=== PATIENT | female | born 1980 | race Caucasian/White ===

== ENCOUNTER 2025-02-25 12:37 | Outpatient (OUT) | payer BC, SELFPAY ==
--- NOTE | 2025-02-25 12:45 | XR_ITS ---
[facility] [place] [id number] Patient Name: JERI DALTON MRN: [id number] date: 1980 Sex: F Assigned Patient Location: [facility] Current Patient Location: [facility] Accession/Order Number: [id number] Exam Date: 02/25/2025 12:57 Report Date: 02/25/2025 14:13 At the request of: DANIKA JOHNSON DPDanielle Procedure: XR foot JENNIFER min 3V Bilateral foot series 3 views each. Reason for exam: Foot pain. COMPARISON: None FINDINGS: Right foot demonstrates no focal soft tissue abnormality or acute bony process. Joint spaces appear maintained. No bony erosions. Similar findings are seen involving the left foot without acute bony process. Bilateral plantar spurring. XR/XR foot JENNIFER min 3V IMPRESSION: Bilateral plantar spurring. No acute bony process. Impression dictated by: Syed Alexandre Jr., D.O. 02/25/2025 2:13 PM Dictation Location: [employer] Electronically authenticated by: [id number] Y Date: 02/25/2025 14:13
== END 2025-02-25 12:38 | disposition home or self-care (01) ==
LOC: RAD 12:38
PROVIDERS: PCP Family Medicine; Visit Provider Podiatrist Foot & Ankle Surgery
DX: M79.671 Pain in right foot (principal); M79.672 Pain in left foot; M77.32 Calcaneal spur, left foot; M77.31 Calcaneal spur, right foot
CPT/HCPCS: 73630

== ENCOUNTER 2025-03-08 14:31 | Outpatient (OUT) | payer BC, SELFPAY ==
--- NOTE | 2025-03-08 14:33 | MR_ITS ---
[address] [address] Patient Name: JERI DALTON MRN: [id number] date: 1980 Sex: F Assigned Patient Location: MRI Current Patient Location: MRI Accession/Order Number: [id number] Exam Date: 03/08/2025 15:25 Report Date: 03/08/2025 17:06 At the request of: DANIKA JOHNSON DPM Procedure: MR ankle LT wo con MR ankle LT wo con 03/08/2025 4:04 PM SIGNS AND SYMPTOMS: ^Plantar Fasciitis, pain medially along the arch PROTOCOL: Multiplanar multisequence MR images of the left ankle without contrast COMPARISON: 02/25/2025 FINDINGS: Alignment: Normal. Fluid: Tibiotalar: No joint effusion. Subtalar: No joint effusion. Medial: Medial malleolus: Intact. Tendons: Posterior tibial tendon: Intact. Flexor digitorum longus: Intact. Flexor hallucis longus: Intact. Ligaments: Deltoid ligament complex - superficial: Intact. Deltoid ligament complex - deep: Intact. Spring (plantar calcaneo-navicular) ligament: Intact. Lateral: Lateral malleolus: Normal. Retromalleolar groove: Normal. Tendons: Peroneus longus: Fluid is noted along the tendon sheath of the peroneus longus suggesting tenosynovitis. Peroneus brevis: Fluid is noted along the tendon sheath of the peroneus brevis suggesting tenosynovitis. Peroneal retinaculum: Intact. Ligaments: Anterior inferior tibiofibular (syndesmosis): Intact. Posterior inferior tibiofibular (syndesmosis): Intact. Anterior talofibular ligament: Intact. Calcaneofibular ligament: Intact. Posterior talofibular ligament: Intact. Posterior: Posterior talus: Normal. Intermalleolar ligament: Intact. Achilles tendon: Intact. Plantar fascia: There is increased signal intensity on fluid sensitive sequences along the base of the plantaris fascia consistent with suspicion of plantar fasciitis. There is enthesopathy along the calcaneal origin. Anterior: Tendons: Anterior tibial tendon: Intact. Extensor hallucis longus: Intact. Extensor digitorum longus: Intact. Tibiotalar joint: Intact. Subtalar joint: Intact. Bones (other than subarticular marrow): Normal Muscles: Normal Tarsal tunnel: Normal Sinus tarsi: Normal. MR/MR ankle LT wo con IMPRESSION: There is increased signal intensity on fluid sensitive sequences along the base of the plantaris fascia consistent with suspicion of plantar fasciitis. There is enthesopathy along the calcaneal origin. Fluid is noted along the tendon sheath of the peroneus brevis longus and brevis suggesting tenosynovitis. Impression dictated by: Blue Sotelo M.D. 03/08/2025 5:06 PM Dictation Location: [place] [address] Electronically authenticated by: [id number] Y Date: 03/08/2025 17:06
== END 2025-03-08 14:32 | disposition home or self-care (01) ==
LOC: MRI 14:31
PROVIDERS: PCP Family Medicine; Visit Provider Podiatrist Foot & Ankle Surgery
DX: M72.2 Plantar fascial fibromatosis (principal)
CPT/HCPCS: 73721

== ENCOUNTER 2025-04-29 13:00 | Outpatient (OUT) | payer BC, SELFPAY ==
--- NOTE | 2025-04-29 13:06 | ECG_ITS ---
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 Measurements Intervals [place] Rate: 88 P: 20 VA: 142 QRS: 24 QRSD: 82 T: 37 QT: 355 QTc: 431 Interpretive Statements SINUS RHYTHM Normal ECG No previous ECG available for comparison Electronically Signed On 04-29-2025 17:23:13 EST by NATASHA SANTIAGO M.D.
--- NOTE | 2025-04-29 13:45 | PM.PRESUREVA ---
History of Present Illness History of Present Illness Chief complaint: plantar fasciitis, equinous contracture left ankle Narrative: Vida Galloway is a pleasant 45-year-old female who presents to presurgical testing with complaints of left foot pain in the diagnosis of left plantar fasciitis and equinus contracture of the left ankle she is scheduled for left endoscopic plantar fasciotomy and Narcisa gastrocnemius recession Review of Systems ROS Narrative REVIEW OF SYSTEMS: Negative except as stated in HPI, ten or more systems reviewed. Constitutional: No fever, chills, weakness ENT: No sore throat or epistaxis Cardiovascular: No edema, chest pain, palpitations, or activity intolerance Respiratory: No shortness of breath, cough, or wheezing Musculoskeletal: Intermittent pain and swelling to left foot and ankle. Gastrointestinal: No abdominal pain, constipation, diarrhea, or vomiting Genitourinary: No dysuria or hematuria Neurological: No numbness, tingling, weakness, or headache Psychiatric: No mood changes PFSH PFSH Medical History (Updated 04/29/25 @ 13:52 by Lakeshia Almazan) Anxiety ?F41.9 - Anxiety disorder, unspecified (ICD-10) Surgical History (Updated 04/29/25 @ 13:34 by Lakeshia Almazan) History of wisdom tooth extraction ?K08.409 - Partial loss of teeth, unspecified cause, unspecified class (ICD-10) Family History (Updated 04/29/25 @ 13:31 by Lakeshia Almazan) Other Family history of Alzheimer's disease Family history of aneurysm Family history of diabetes mellitus Family history of hypertension Family history of kidney cancer Family history of renal failure Social History (Updated 04/29/25 @ 13:29 by Lakeshia Almazan) Within the past year, how often did you have a drink containing alcohol: 2-3 times a week Smoking status: Current every day smoker Non-prescribed substance use: cannabis (any form) Non-prescribed substance use details: infrequent 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 Highest level of school completed/degree received: Associate degree: academic program Meds Home Medications and Allergies Home Medications ?Medication ?Instructions ?Recorded ?Confirmed ?Type meloxicam 15 mg tablet 15 mg PO DAILY 04/29/25 04/29/25 History Allergies Allergy/AdvReac Type Severity Reaction Status Date / Time No Known Drug Allergies Allergy Verified 04/29/25 13:25 Exam Narrative Exam Narrative: Constitutional: Awake, alert, comfortable, well-appearing, nontoxic, interactive, vital signs as charted Head: Normocephalic, atraumatic Eyes: Conjunctiva and lids normal to inspection, pupils normal ENT: Tympanic membranes pearly kitchen, nonerythematous, noninjected, naris patent, posterior oropharynx clear, oral mucosa moist Neck: Supple, normal appearance, normal range of motion, no meningeal signs, no lymphadenopathy Respiratory: No respiratory distress, breath sounds clear Cardiovascular: Regular rate and rhythm, strong and regular heart tones Abdomen: Nontender, normal bowel sounds, soft, no CVA tenderness Musculoskeletal: Normal gait, mild soft tissue swelling to left foot and ankle Skin: No rashes or induration, no lesions, only visible skin inspected Neuro: No neurological deficits, normal sensation Psychiatric: Oriented ?3, normal affect Assessment and Plan Assessment and Plan (1) Plantar fasciitis of left foot: (2) Contracture of left ankle: Plan She is scheduled for left endoscopic Plantar fasciotomy Elicia gastrocnemius recession with Dr. Ham on 05/03/2025
[2025-04-29 14:09] LABS: Anion Gap 10.0; Blood Urea Nitrogen 9.0 mg/dL (7.0-18.0); Calcium 9.1 mg/dL (8.5-10.1); Carbon Dioxide 29.9 mmol/L (21.0-32.0); Chloride 102 mmol/L (98-107); Estimated GFR (African America >60 (>=60 mL/min/1.73m^2); Estimated GFR (Non-African Ame >60 (>=60 mL/min/1.73m^2); Glucose 97 mg/dL (74-106); Potassium 3.9 mmol/L (3.5-5.1); Sodium 138 mmol/L (136-145)
== END 2025-04-29 13:01 | disposition home or self-care (01) ==
LOC: PST 13:00
PROVIDERS: PCP Family Medicine; Visit Provider Podiatrist Foot & Ankle Surgery
DX: Z01.810 Encounter for preprocedural cardiovascular examination (principal); Z01.812 Encounter for preprocedural laboratory examination; Z01.818 Encounter for other preprocedural examination; M72.2 Plantar fascial fibromatosis; M24.572 Contracture, left ankle
CPT/HCPCS: 36415; 80048; 93005; G0463

== ENCOUNTER 2025-05-03 08:20 | Day surgery (SDC) | payer BC, SELFPAY ==
--- OUTSIDE RECORDS SUMMARY | 2025-04-22 07:30 | XMS_ITS ---
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 Name Role Phone Pablito Baker Unavailable [phone] Allergies No Known Allergies REASON FOR VISIT Left Foot Pain Medications Medication SIG (Take, Route, Frequency, Duration) Notes Start Date End Date Status Meloxicam 15 MG Tablet 1 tablet Orally daily; Du ration: 30 days 5ActivedexAMETHasone Sodium Phosphate 4 MG/ML Solution 1.5 - 2.5 mL topical 3 times a week; Duration: 28 days take to physical therapy for iontophoresis 5ActiveMedrol 4 MG Tablet Therapy Packas directed Orally daily; Duration: 6 days5Active Social History Section Notes: Everyday smoker Social alcohol use Works at [email or web address] Encounters Encounter Location Date Provider Diagnosis [address] [address], [facility] [place] [address] 04/22/2025 Pablito Baker Plantar fasciitis, bilateral M72.2 and Equinus contracture of left ankle M24.572 Assessments Encounter Date Diagnosis (ICD Code) Assessment Notes Treatment Notes Treatment Clinical Notes Section Notes 04/22/2025 Plantar fasciitis, bilateral ( D-10 - M72.2) I discussed the pros & cons of continued nonoperative care vs surgical intervention. Patient would like to undergo surgical intervention and I recommended: LEFT endoscopic plantar fasciotomy and Elicia gastrocnemius recession Specific complications that could potentially occur were discussed in detail which included wound/dehiscence, infection, pain, bleeding, numbness/tingling, DVT/PE, swelling and need for additional surgery. Postoperative course was discussed including weight bearing status: WBAT in CAM boot x3 weeks. She will buy CAM boot online. Estimated time off of work: 1 week as she believes [facility] will allow her to work in boot and on sedentary restrictions. Orders for preoperative clearance and scheduling were placed. She has no history of cardiac or pulmonary issues but does smoke daily. She was educated to how smoking preop can affect healing and poses higher risk of periop complications. Anesthesia was discussed and all questions answered to satisfaction. 04/22/2025Equinus contracture of left ankle (ICD-10 - M24.572)She also requested refill for meloxicam which was sent to her pharmacy Plan Of Treatment Medication Medication Name Sig Start Date Stop Date Notes Meloxicam 15 MG Tablet 1 tablet Orally daily; Duration : 30 days 02/25/2025 Treatment Notes Assessment Notes Plantar fasciitis, bilateral I discussed the pros & cons of continued nonoperative care vs surgical intervention. Patient would like to undergo surgical intervention and I recommended: LEFT endoscopic plantar fasciotomy and Elicia gastrocnemius recession Specific complications that could potentially occur were discussed in detail which included wound/dehiscence, infection, pain, bleeding, numbness/tingling, DVT/PE, swelling and need for additional surgery. Postoperative course was discussed including weight bearing status: WBAT in CAM boot x3 weeks. She will buy CAM boot online. Estimated time off of work: 1 week as she believes [facility] will allow her to work in boot and on sedentary restrictions. Orders for preoperative clearance and scheduling were placed. She has no history of cardiac or pulmonary issues but does smoke daily. She was educated to how smoking preop can affect healing and poses higher risk of periop complications. Anesthesia was discussed and all questions answered to satisfaction. Equinus contracture of left ankle She al so requested refill for meloxicam which was sent to her pharmacy Next Appt Details Follow Up: Post op, Reason: History and Physical Notes * HPI (History of Present Illness) CategorySub-CategoryDetailNotesCategory NotesKamille presents for f/u regarding b/l plantar fasciitis. She has failed to respond to PT with ionto phoresis, home stretching, 2 steroid injections (by previous DPM), shoe and activity modification, NSAIDs such as meloxicam and PO steroids. She is considering surgery. Examination CategorySub-CategoryDetailNotesCategory NotesGeneral Examination Skin: intact without sign of infection. No rash. Neuro: LTS intact to plantar/dorsal foot. Negative tinel's sign. Vasc: Palpable pedal pulses. No bruising. No calf pain on squeeze. Mild swelling noted in the instep. MSK: POP at the proximal medial band of plantar fascia bilateral. No pain when squeezing the heel. Ankle joint dorsiflexion to neutral with knee extended but not past. Strength 5/5 in all planes. Progress Notes * Vida DALTONDOB: 0 (45 yo F)Acc No.[id number]:04/22/2025 Progress Notes Patient: Vida Maciel :?Pablito Baker, DPMDOB:1980???Age:45 Y ???Sex:FemaleDate:04/22/2025Phone:Address:[address] [place] [address] , [facility] [phone] Subjective: * Chief Complaints: * L eft Foot Pain * HPI: ???Foot:?Vida presents for f/u regarding b/l plantar fasciitis. She has failed to respond to PT with iontophoresis, home stretching, 2 steroid injections (by previous DPM), shoe and activity modification, NSAIDs such as meloxicam and PO steroids. She is considering surgery. * Medical History: Plantar fasciitis b/l Medical History Verified * Surgical History: Denies Past Surgical History.? Surgical History verified.? * Family History: F ather: diagnosed with Type 2 diabetes mellitus without complication, unspecified whether ad terminal makeup operator insulin use, Essential hypertension. M other: diagnosed with Type 2 diabetes mellitus without complication, unspecified whether ad terminal makeup operator insulin use, Essential hypertension. F amily History Verified.. * Social History: Social History Verified. ???Everyday smoker Social alcohol use Works at [email or web address]. * Medications: T akingMeloxicam 15 MG Tablet 1 tablet Orally daily dexAMETHasone Sodium Phosphate 4 MG/ML Solution 1.5 - 2.5 mL topical 3 times a week take to physical therapy for iontophoresisMedrol 4 MG Tablet Therapy Pack as directed Orally daily Medication List reviewed and reconciled with the patientTaking Meloxicam 15 MG Tablet 1 tablet Orally daily Taking dexAMETHasone Sodium Phosphate 4 MG/ML Solution 1.5 - 2.5 mL topical 3 times a week take to physical therapy for iontophoresisTaking Medrol 4 MG Tablet Therapy Pack as directed Orally daily Medication List reviewed and reconciled with the patient * Allergies: N .K.D.A.yesAllergies Verified. Objective: * Examination: ???General Examination: ???Skin: intact without sign of infection. No rash. Neuro: LTS intact to plantar/dorsal foot. Negative tinel's sign. Vasc: Palpable pedal pulses. No bruising. No calf pain on squeeze. Mild swelling noted in the instep. MSK: POP at the proximal medial band of plantar fascia bilateral. No pain when squeezing the heel. Ankle joint dorsiflexion to neutral with knee extended but not past. Strength 5/5 in all planes. Assessment: * Assessment: 1.?Plantar fasciitis, bilateral - M72.2 (Primary)???2.?Equinus contractureof left ankle - M24.572??? Plan: * Treatment: Notes: I discussed the pros & cons of continued nonoperative care vs surgical intervention. Patient would like to undergo surgical intervention and I recommended: LEFT endoscopic plantar fasciotomy and Elicia gastrocnemius recession Specific complications that could potentially occur were discussed in detail which included wound/dehiscence, infection, pain, bleeding, numbness/tingling, DVT/PE, swelling and need for additional surgery. Postoperative course was discussed including weight bearing status: WBAT in CAM boot x3 weeks. She will buy CAM boot online.? Estimated time off of work: 1 week as she believes [facility] will allow her to work in boot and on sedentary restrictions. Orders for preoperative clearance and scheduling were placed. She has no history of cardiac or pulmonary issues but does smoke daily. She was educated to how smoking preop can affect healing and poses higher risk of periop complications.?Anesthesia was discussed and all questions answered to sa mello.???2.?Equinus contracture of left ankle? Refill Meloxicam Tablet, 15 MG, 1 tablet, Orally, daily, 30 days, 30 Tablet, Refills 2.?? Notes: She also requested refill for meloxicam which was sent to her pharmacy?? * Follow Up: P ost op Billing Information: * Visit Code: 61297 Office Visit, Est Pt., Level 4. * Procedure Codes: * Sign off status: Completed true * Provider: Afshin Baker DPM Date: 06/23/2024 Generated for Printing/Faxing/eTransmitting on:?05/03/2025 08:24 AM EST
[2025-04-29 13:30] VITALS: BP 173/130; PULSE 89; TEMP 36.2; O2SAT 99; BMI 33.8
[2025-05-03] VITALS (13 sets, daily range): BP systolic 152–185; BP diastolic 104–123; PULSE 85–115; TEMP 36.1–36.9; O2SAT 93–98; BMI 33.2
--- OUTSIDE RECORDS SUMMARY | 2025-05-03 08:24 | XMS_ITS | Clinical Summary ---
Author Organization [facility] Address [address] [place] [address] Care Team Providers Care Transportation Services Representative Name Role Phone Simran Tuttle MD Primary Care Provider [phone] Allergies No known active allergies Medications MedicationSigDispense QuantityRefillsLast FilledStart DateEnd DateStatus predniSONE (Deltasone) 10 MG tablet Indications:Plantar fasciitisTake 2 pills by mouth twice daily for 5 days, take 1 pill twice daily for 5 days then 1 pill once daily for 5 days. 35 tablet 4Active Active Problems No known active problems Family History RelationNameStatusCommentsFatherAliveMotherAlive Social History Tobacco UseTypesPacks/DayYears UsedDateSmoking Tobacco: Every DayCigarettes Smokeless Tobacco: Never Tobacco Cessation:Ready to Q uit: Not Asked; Counseling Given: Not Answered Alcohol UseStandard Drinks/WeekCommentsNot Currently0 (1 standard drink = 0.6 oz pure alcohol)CommentsUnknownSex and Gender InformationValueDate Recorded Sex Assigned at BirthNot on fileLegal IavVwfner49/15/2023 9:28 PM EDTGender IdentityNot on fileSexual OrientationNot on file Last Filed Vital Signs Vital SignReadingTime TakenCommentsBlood Ncxytlbu126/9801 12:34 PM EST Vcttw10679 12:34 PM IVNMrrsawmrgsc38.7 ??C (98 ??F)06/09/2023 12:34 PM ESTRespiratory Rate--Oxygen Elobvunxbf27%06/09/2023 12:34 PM ESTInhaled Oxygen Concentration--Phtfxz26.3 kg (201 lb 3.2 oz)06/04/2023 9:05 AM KNDJmdidt765.6 cm (5' 6 )08/19/2018 12:00 PM EDTBody Mass Index32.47008/19/2018 12:00 PM EDT Plan of Treatment Not on file Insurance Care Teams Team MemberRelationshipSpecialtyStart DateEnd Date Simran Tuttle MD [address] [place] [id number] PCP - GeneralInternal Medicine09/10/23
--- OUTSIDE RECORDS SUMMARY | 2025-05-03 08:24 | XMS_ITS | Patient Health Record ---
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 Out of Town, Out of town Primary Care Provider U maddisonann-marie Rosalia Hartman Unavailable Allergies No Known Allergies Reason For Referral No Information Medications Medication SIG (Take, Route, Frequency, Duration) Notes Start Date End Date Status Fluticasone Propionate 50 MCG/ACT 1 spra y in each nostril Nasally Once a day; Duration: 30 days 5ActiveIbuprofen 400 MG1 tablet with food or milk as needed Orally Three times a dayActiveAlbuterol Sulfate HFA 108 (90 Base) MCG/ACT1 puff as needed Inhalation every 4 - 6 hours as needed; Duration: 5Active Amoxicillin-Pot Clavulanate 875-125 MG1 tablet Orally every 12 hrs; Duration: 7 days5Active Social History Tobacco Use: Social History Observation Description Date Details (start date - stop date) Current Smoker NA - NA Tobacco Control (Standard) Question Answer Notes Tobacco use: Current smoker How often do you smoke cigarettes?Every dayHow many cigarettes a day do you smoke?11-20Are you interested in quitting?Not ready to quit Problems Problem Type SNOMED Code ICD Code Onset Dates Problem Status W/U Status Risk Notes Problem Tobacco user (955001482) Cigaret te nicotine dependence without complication (F17.210) Activeconfirmed Vital Signs Temperature 98.5 degrees Fahrenheit 01/17/2025 Respiratory Rate16 /min01/17/20254871Fkbtfefq3993/01/2025lood pressure mm Hg01/17/20252293Yqmezh44 in01/17/2025lood pressure cxedkrbi103 mm Hg01/17/2025 Pihqyw754 lbs01/17/2025BMI32.1 kg/m201/17/2025 Encounters Encounter Location Date Provider Diagnosis [address] [address] [place] [address] 01/17/2025 Rosalia Gonzalez Hernandez Acute non-recurrent pansinusitis J01.40 ; Wheeze R06.2 ; Obesity (BMI 30.0-34.9) E66.811 ; Elevated blood pressure reading R03.0 and Cigarette nicotine dependence without complication F17.210 Assessments Encounter Date Diagnosis (ICD Code) Assessment Notes Treatment Notes Treatment Clinical Notes Section Notes 01/17/2025 Wheeze (ICD-10 - R06.2) Wheezing or Bronchoconstriction: Care Instructions material was published, Using a Metered-Dose Inhaler Without a Spacer: Care Instructions material was published Patient instructed to avoid the use of NSAIDS (such as: Motrin, Ibuprofen, Advil, naproxen, Aleve, Celebrex, Diclofenac) while taking oral steroids. Oral steroids can make you feel jittery and/or irritable. Recommended to take in mornings with food. 5Acute non-recurrent pansinusitis (ICD-10 - J01.40) Acute Sinusitis: Care Instructions material was published Complete the entire course of antibiotics as prescribed, even when symptoms have improved, to prevent a relapse of infection and the development of antibiotic resistance. Acute sinusitis is an inflammation of the mucous membranes inside the nose and sinuses. Sinuses are the hollow spaces in your skull around the eyes and nose. Acute sinusitis often follows a cold. Acute sinusitis causes thick, discolored mucus that drains from the nose or down the back of the throat. It also can cause pain and pressure in your head and face along with a stuffy or blocked nose. In most cases, sinusitis gets better on its own in 1 to 2 weeks. But some mild symptoms may last for several weeks. Sometimes antibiotics are needed if there is a bacterial infection. Follow-up care is a dominguez part of your treatment and safety. Be sure to make and go to all appointments, and call your doctor if you are having problems. It's also a good idea to know your test results and keep a list of the medicines you take. How can you care for yourself at home? Use saline (saltwater) nasal washes. This can help keep your nasal passages open and wash out mucus and allergens. You can buy saline nose washes at a grocery store or drugstore. Follow the instructions on the package. You can make your own at home. Add 1 teaspoon of non-iodized salt and 1 teaspoon of baking soda to 2 cups of distilled or boiled and cooled water. Fill a squeeze bottle or a nasal cleansing pot (such as a neti pot) with the nasal wash. Then put the tip into your nostril, and lean over the sink. With your mouth open, gently squirt the liquid. Repeat on the other side. Try a decongestant nasal spray like oxymetazoline (Afrin). Do not use it for more than 3 days in a row. Using it for more than 3 days can make your congestion worse. If needed, take an ulic-zgl-urgmcuj pain medicine, such as acetaminophen (Tylenol), ibuprofen (Advil, Motrin), or naproxen (Aleve). Read and follow all instructions on the label. If the doctor prescribed antibiotics, take them as directed. Do not stop taking them just because you feel better. You need to take the full course of antibiotics. Be careful when taking ljvz-itl-uacgrhc cold or flu medicines and Tylenol at the same time. Many of these medicines have acetaminophen, which is Tylenol. Read the labels to make sure that you are not taking more than the recommended dose. Too much acetaminophen (Tylenol) can be harmful. Try a steroid nasal spray. It may help with your symptoms. Breathe warm, moist air. You can use a steamy shower, a hot bath, or a sink filled with hot water. Avoid cold, dry air. Using a humidifier in your home may help. Follow the directions for cleaning the machine. When should you call for help? Call your doctor now or seek immediate medical care if: You have new or worse swelling, redness, or pain in your face or around one or both of your eyes. You have double vision or a change in your vision. You have a high fever. You have a severe headache and a stiff neck. You have mental changes, such as feeling confused or much less alert. Watch closely for changes in your health, and be sure to contact your doctor if: You are not getting better as expected. From <https://emr.[employer].net/Launch?hw.dominguez=[email or web address] [id number]& hmg=[id number]> 01/17/2025Obesity (BMI 30.0-34.9) (ICD-10 - E66.811) Learning About Healthy Weight material was published Continue healthy eating and exercise. May follow up with [employer] dietitians via a telehealth visit at [email or web address]/services/telenutrition to help with dietary changes to lower BMI. 01/17/2025Elevated blood pressure reading (ICD-10 - R03.0) Learning About High Blood Pressure material was published Regularly follow up with the healthcare provider who manages your high blood pressure. Monitor yourblood pressure as it should be less than 120/80. 01/17/2025igarette nicotine dependence without complication (ICD-10 - F17.210) Quitting Tobacco: Care Instructions material was published, Learning About Benefits of Quitting Smoking material was qwrkjhhqe20/01/2025Other Amoxicillin and Clavulanic Acid material was published, Fluticasone Nasal [place] material was published, Thank you for your visit. Please look for the satisfaction survey that you will receive via email. We look forward to receiving your feedback regarding your experience at [facility]. Visit summary given to and discussed with patient and/or parent who verbalizes understanding and agreement with plan of care. NOTE to Provider of Record: MIPS recommendations for 1st Hypertensive Reading in the past 12 months (>/= 130 systolic or >/= 80 diastolic): 1) Recommend to rescreen blood pressure in less than 4 weeks AND 2) Provide and document recommendations for non-pharmacologic interventions in the Preventative Medicine window, which may include Lifestyle recommendations, Physical Activity recommendations, WeightReduction Recommendations, or Dietary Recommendations OR Provide and document a referral to alternate care provider Plan Of Treatment No Information Insurance Providers Payer Name Payer Address Payer Phone Subscriber Number Group Number Insured Name Patient Relationship to Insured Coverage Start Date Coverage End Date [facility] [address] [place] [address] [id number] Vida Galloway Self - patient is the insured Medical (General) History Hospitalization History Reason Date(Month/Year) chest pain that was ruled as heart burn
--- OUTSIDE RECORDS SUMMARY | 2025-05-03 08:24 | XMS_ITS | Clinical Summary ---
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
--- OUTSIDE RECORDS SUMMARY | 2025-05-03 08:24 | XMS_ITS | Patient Health Record ---
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 Name Role Phone Pablito Baker Unavailable [phone] Allergies No Known Allergies Reason For Referral [...] Everyday smoker Social alcohol use Works at [employer] Everyday smoker Social alcohol use Works at [employer] Everyday smoker Social alcohol use Works at [employer] Problems Problem Type SNOMED Code ICD Code Onset Dates Problem Status W/U Status Risk Notes Problem 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) Plantar fasciitis, bilateral (M72.2) ActiveconfirmedProblemPlantarflexion deformity of right foot (finding) (0119117430865954)Equinus contracture of right ankle (M24.571)Activeconfirmed ProblemEquinus contracture of left ankle (M24.572)Activeconfirmed Encounters Encounter Location Date Provider Diagnosis [facility] [address] [address], [place] [address] 02/25/2025 Pablito Baker Plantar fasciitis, bilateral M72.2 ; Equinus contracture of left ankle M24.572 and Equinus contracture of right ankle M24.571 [employer] [facility] [address] [address], [facility] [place] [place] [address] 03/11/2025 Pablito Baker Plantar fasciitis, bilateral M72.2 ; Equinus contracture of right ankle M24.571 and Equinus contracture of left ankle M24.[address] [facility], [facility] [address] [facility] [address] [place] [address] 04/22/2025 Pablito Baker Plantar fasciitis, bilateral M72.2 and Equinus contracture of left ankle M24.572 Assessments Encounter Date Diagnosis (ICD Code) Assessment Notes Treatment Notes Treatment Clinical Notes Section Notes 02/25/2025 Equinus contracture of left ankl e (ICD-10 - M24.572) 03/11/2025Plantar fasciitis, bilateral (ICD-10 - M72.2) Patient seen and evaluated. Patient education provided and all questions answered to satisfaction. - MRI was reviewed and is consistent with plantar fasciitis. - Discussed NSAIDS and she will continue meloxicam. - Discussed potential use of plantar fascial injection - will hold off for now however she would like to try PO steroids which was sent to pharmacy - Strongly recommended physical therapy with modalities: US, E-stim & dry needling as she wouldlike to attempt 2-3 more months of nonsurgical care prior to considering surgery - Continue stretching routine, OTC orthotics, night splint, RICE therapy and massage. 03/11/2025Equinus contracture of right ankle (ICD-10 - M24.571)02/25/2025Plantar fasciitis, bilateral (ICD-10 - M72.2) Patient seen and evaluated. Patient education provided and all questions answered to satisfaction. - Patient has had persistent symptoms for 1.5 years and is no better with nonsurgical treatments attempted (see HPI). I recommended and ordered an MRI of the left ankle/hindfoot. - Achilles/calf stretching emphasized & demonstrated. Handout provided & recommended stretching at least 3x per day. - Discussed NSAIDS. Prescription sent for meloxicam - Recommended physical therapy with modalities: US, E-stim, iontophoresis & dry needling. Orderprovided. - Discussed OTC orthotics, night splint, RICE therapy and massage. 04/22/2025Plantar fasciitis, bilateral (ICD-10 - M72.2) I discussed the pros & [...] of work: 1 week as she believes [facility] will allow her to work in boot [...] for meloxicam which was sent to her cokwqisp34/10/2025Equinus contracture of right ankle (ICD-10 - M24.571)03/11/2025Equinus contracture of left ankle (ICD-10 - M24.572) Plan Of Treatment No Information Insurance Providers Payer Name Payer Address Payer Phone Subscriber Number Group Number Insured Name Patient Relationship to Insured Coverage Start Date Coverage End Date [facility] [address] [place] [address] [id number] Justin Galloway - patient is the insured Medical (General) History Medical History History ICD Code Plantar fasciitis b/l
[2025-05-03] MEDS: CEFAZOLIN SODIUM/DEXTROSE,ISO 2 GM/50 ML PIGGYBACK IV (10:18)
--- NOTE | 2025-05-03 10:56 | PM.ORONB ---
Brief Operative Note Date of procedure: 05/03/25 Pre-op diagnosis general: Left plantar fasciitis and equinus, right plantar fasciitis Post-op diagnosis: same as pre-op Procedure: Procedure performed: Left endoscopic plantar fasciotomy and Elicia gastrocnemius recession. Corticosteroid injection right heel Indications for procedure: Marguerite is a 45-year-old female with chronic bilateral heel pain with the left being more painful than the right. She initially was treated by another metal rivet machine operator with 2 steroid injections, NSAIDs and p.o. steroids then she came to me for second opinion and I prescribed home stretching program and physical therapy with iontophoresis. Despite over a year of nonsurgical care her symptoms did not improve and an MRI was obtained of her left heel which confirmed the diagnosis of plantar fasciitis. Due to her daily debilitating symptoms she wished to undergo the above procedures and medical clearance was obtained. In the preoperative holding area she requested to have a steroid injection in her right heel knowing that this would likely be temporary but would help her through the postoperative course. Her consent was updated to reflect injection in the right heel. Intraoperative findings: Ankle joint dorsiflexion was to neutral but not passed with the knee flexed and extended. Plantar fascia was taut thickened and scarred consistent with chronic plantar fasciitis. Procedure in detail: Patient was identified in preoperative holding by myself which time correct side and site were marked and consent was obtained and updated. Patient is brought back to the operating room placed on table in supine position and preoperative antibiotics were started. General anesthesia was administered and the left lower extremity was prepped and draped in usual sterile fashion. Formal timeout was performed then local anesthesia was administered as field blocks over the 2 operative sites using 20 cc of 0.5% Marcaine plain. A longitudinal incision over the medial aspect of the calf to see her breadths posterior to the posterior aspect of tibia was performed. Combination sharp and blunt dissection with all bleeders being coagulated gained access to the gastrocnemius aponeurosis. Once the aponeurosis was isolated a speculum was inserted from the medial to lateral position just superficial to the aponeurosis. The speculum allowed full visualization of the aponeurosis and the foot was held in maximal dorsiflexed position. A fifteen blade was used to transversely incise the gastrocnemius fascia to two separate location (one proximal and one distal) followed by release of the soleus fascia. 10 degrees of ankle joint dorsiflexion was obtained. The area was flushed with copious sterile saline and skin was closed in layers. Stab incision over the medial aspect of the left in-step at the glabrous skin junction was used followed by blunt dissection and the medial band of the plantar fascia was identified. Trochar and cannula were then placed medial to lateral. A lateral stab incision was made to allow passage of the trochar and cannula. Camera was inserted into the lateral portal and a hook blade was placed into the medial portal. 50% of the plantar fascia was released and healthy muscle was noted. The site was flushed with saline and instrumentation was removed. Closure with nylon suture was then undertaken.the tourniquet was deflated noting a prompt hyperemic response. A dry sterile dressing was placed followed by CAM boot. After all of the drapes were removed alcohol was used to cleanse the right plantar medial instep then an injection of 1 cc of betamethasone was injected into the plantar fascia. Injection site was dressed with a Band-Aid. Patient tolerated the procedure and anesthesia well was transferred to the recovery room with vital signs stable and brisk capillary refill to the toes. Postoperative plan: Discharged home under family's care Weightbearing as tolerated in cam boot. Ice and elevation and rest were strongly recommended. Prescriptions were sent using my office EMR She will follow-up in 3 weeks for suture removal but will call the office with any concerns, questions or issues. Implants: None Anesthesia: local and General-LMA Surgeon: Pablito Baker Estimated blood loss (mL): 10 Tourniquet time (min): 18 Pathology: none sent Condition: stable Disposition: PACU
[2025-05-03] MEDS: BUPIVACAINE HCL 0.5% PF 50 MG/10 ML VIAL 20 ML INJ (11:08)
[2025-05-03] MEDS: BETAMETHASONE ACE/BETAMETHASONE SOD PHOS 30 MG/5 ML 12 MG INJ (11:33)
== END 2025-05-03 13:00 | disposition home or self-care (01) ==
PROVIDERS: Anesthesiology; PCP Family Medicine; Visit Provider Podiatrist Foot & Ankle Surgery
PROC: (CPT 1464; principal; 2025-05-03 09:55)
DX: M72.2 Plantar fascial fibromatosis (principal); M24.572 Contracture, left ankle; F17.210 Nicotine dependence, cigarettes, uncomplicated; I10 Essential (primary) hypertension; F41.9 Anxiety disorder, unspecified; M79.671 Pain in right foot; M79.672 Pain in left foot
CPT/HCPCS: 20550; 27687; 29893; 36415; 82948; 84703; J0131; J0665; J0690; J0702; J1100; J1885; J2250; J2405; J2704; J3010